=== PATIENT | male | born 1990 | race Caucasian/White ===

== ENCOUNTER 2020-09-22 11:03 | Outpatient (REF) | payer OTHER, SELFPAY ==
[2020-09-22 13:22] LABS: MANUAL DIFF FLAG NO
[2020-09-22 13:24] LABS: Basophils Percent Auto 0.2 % (0-2); Eosinophils Absolute Auto 0.3 X10*3/uL (0.0-0.4); Hematocrit 48.3 % (42-52); Hemoglobin 15.7 g/dl (14.0-18.0); Imm Gran Abs Auto 0.02 X10*3/uL (0.00-0.03); Imm Gran Pct Auto 0.2 % (0.0-0.4); Lymphocytes Absolute Auto 3.4 X10*3/uL (1.2-4.9); Lymphocytes Percent Auto 41.3 % (20-40); Mean Corpuscular HGB Conc 32.5 g/dl (31.0-36.0); Mean Corpuscular Hemoglobin 30.4 pg (27.0-33.0); Mean Corpuscular Volume 93.6 fL (80-98); Mean Platelet Volume 10.6 fL (9.4-12.4); Monocytes Absolute Auto 0.8 X10*3/uL (0.1-1.2); Monocytes Percent Auto 9.5 % (2-11); Neutrophils Absolute Auto 3.8 X10*3/uL (2.0-8.3); Neutrophils Percent Auto 45.8 % (45-73); Platelet Count 337 X10*3/uL (160-400); Red Blood Count 5.16 X10*6/uL (4.60-5.80); Red Cell Distribution Width 13.1 % (11.0-16.0); White Blood Count 8.2 X10*3/uL (4.8-10.8)
[2020-09-22 13:48] LABS: Anion Gap 12 (12-20); Blood Urea Nitrogen 12 mg/dL (9-16); Calcium 9.8 mg/dL (8.4-10.2); Carbon Dioxide 29 mmol/L (22-29); Chloride 104 mmol/L (96-108); Cholesterol 164 mg/dL; Estimated Glomerular Filt Rate > 60; Glucose Fasting 88 mg/dL (60-99); HDL Cholesterol 45 mg/dL; LDL Cholesterol Calculated 101 mg/dl; Potassium 4.6 mmol/L (3.3-5.1); Sodium 140 mmol/L (135-145); Triglycerides 92 mg/dL
[2020-09-22 14:09] LABS: TSH reflex Free T4 0.86 uIU/mL (0.32-4.0)
== END 2020-09-22 11:04 | disposition home or self-care (01) ==
LOC: HO.HMGCLDS 11:03
PROVIDERS: PCP Internal Medicine; Visit Provider Internal Medicine
DX: Z00.00 Encounter for general adult medical examination without abnormal findings (principal); I10 Essential (primary) hypertension; H50.9 Unspecified strabismus; H53.8 Other visual disturbances; S46.911A Strain of unspecified muscle, fascia and tendon at shoulder and upper arm level, right arm, initial encounter
CPT/HCPCS: 36415; 80048; 80061; 84443; 85025

== ENCOUNTER 2021-02-21 09:52 | Outpatient (REF) | payer OTHER, SELFPAY ==
--- NOTE | ~2021-02-21 | US_ITS ---
EXAMINATION: US SCROTUM CLINICAL INFORMATION: Scrotal pain. COMPARISON: None TECHNIQUE: A sonogram of the scrotum was performed assessing florez-scale appearance and color Doppler flow. Spectral Doppler analysis of the arterial and venous flow were performed in the testes bilaterally. FINDINGS: RIGHT: Right testicle measures 4.7 x 2.2 x 3.4 cm, volume 18 mL. No focal testicular parenchymal lesions are visualized. Spectral Doppler analysis of the arterial and venous flow is normal in the right testis. Right epididymal head is normal in size. No right hydrocele or varicocele is seen. Right epididymal Doppler flow is normal. There is a very small right hydrocele. There is a small right varicocele. LEFT: Left testicle measures 4.6 x 2.1 x 3.1 cm, volume 16 mL. There is question of a small millimeter in size left testicular calcification. No other focal testicular parenchymal lesions are visualized. Spectral Doppler analysis of the arterial and venous flow is normal in the left testis. Left epididymal head is normal in size. No left hydrocele or varicocele is seen. Left epididymal Doppler flow is normal. There is no hydrocele. There is a left varicocele. No scrotal hernia is seen. US/US scrotum IMPRESSION: Bilateral varicoceles, left greater than right. Small right hydrocele. No scrotal hernia seen.
== END 2021-02-21 09:53 | disposition home or self-care (01) ==
LOC: HO.HMGCX 09:52
PROVIDERS: PCP Internal Medicine; Visit Provider Nurse Practitioner Family
DX: N50.89 Other specified disorders of the male genital organs (principal)
CPT/HCPCS: 76870

== ENCOUNTER 2022-05-28 08:27 | Day surgery (SDC) | payer OTHER, SELFPAY ==
[2022-05-22 10:57] VITALS: BMI 22.1
[2022-05-28] VITALS (8 sets, daily range): BP systolic 100–115; BP diastolic 65–70; PULSE 60–78; RESP 16–18; TEMP 36.5–36.6; O2SAT 98–100; BMI 23.0
[2022-05-28] MEDS: Lactated Ringers 1,000 ML 50 ML IVCONT (09:07)
--- NOTE | 2022-05-28 10:16 | P.CONAN_ITS ---
[facility] Active Problems Active Problems: All Active Problems (Updated 05/14/22 @ 12:43 by Naomi Barraza MD) Esotropia of both eyes (Acute) Blurred vision, bilateral (Acute) Strabismus (Acute) Past Medical History Medical History Blurred vision, bilateral Esotropia of both eyes Strabismus Family History Family History Mother Hx of hypoglycemia Surgical History Surgical History Hx of eye surgery History of Problems with Anesthesia: No Social History Social History Housing: Apartment Alcohol intake: current Patient Tobacco Use Status: Never used Tobacco e-Cigarette/Vaping Use: Never Used Use of substances other than those prescribed or required for medical reasons: Yes Substance Use Type: Marijuana Substance Use Frequency: Daily Are you DNR?: No Advance Directives: No Advance Directives Information Provided: Yes service: No Current occupational status: employed Cognitive needs: No Hearing needs: No Vision needs: No Meds Allergies Allergy/AdvReac Type Severity Reaction Status Date / Time Penicillins Allergy Itching Verified 05/14/22 12:39 Active Medications: Current Medications Lactated Ringer's (Lr) 1,000 mls @ 50 mls/hr IVCONT .Q20H FRANCISCO Last Admin: 05/28/22 09:07 Dose: 50 mls/hr Home Medications Medication Instructions Recorded Confirmed Last Taken Type No Known Home Meds 09/21/20 05/22/22 Unknown History Exam Exam Date and Time: May 28, 2022 1016 Height,Weight and Vital Signs: Height 6 ft Weight 77.111 kg Last Vital Signs Temp 97.9 F 05/28/22 08:45 Pulse 71 05/28/22 08:45 Resp 16 05/28/22 08:45 BP 111/66 05/28/22 08:45 Pulse Ox 100 05/28/22 08:45 O2 Del Method 05/28/22 08:45 Airway Mallampati Class: III (Long neck) TM Dist: >3cm Neck ROM: Full Loose/Missing/Broken Teeth: No Heart: RRR Lungs: CTA Assessment and Plan Assessment Anesthesia Assessment: Anesthesia Plan Discussed and Chart Reviewed Final Anesthetic Review History of Problems with Anesthesia: No NPO: Yes ASA Class: II Final Preanesthetic Review: Meds/Allgs Chart Reviewed, Consent Obtained/Reviewed and Anes Risks/Benef Reviewed Patient Risk: Low Procedure Risk: Low Anesthetic Plan Anesthetic Plan: GA Disposition: Standard PACU
[2022-05-28] MEDS: Tetracaine HCl/PF 0.5% Oph Sol 4 ML DROPS 1 DROP EYE-BOTH (12:26)
--- NOTE | 2022-05-28 14:32 | HO.OPHTHAL ---
Ophthalmology Operative Note Date of Service: 05/28/22 Narrative: Diagnosis esotropia. Procedure bilateral lateral rectus resections of [address] Castro. Anesthesia general. Complications none. The patient was brought to the operating room placed under general anesthesia. The patient's eyes were prepped draped in the usual sterile ophthalmic fashion. A lid speculum was placed in the right and left eyes and previous surgery was noted on both medial rectus muscles. The left lid speculum was removed and incision was made down to bare sclera in the inferotemporal fornix of the right eye. The lateral rectus muscle was hooked and dissected free of the surrounding fascial tissue. It was then grasped near its insertion with a muscle clamp and a 9 mm resection was marked off with cautery. The resection point was secured with a double-armed Vicryl suture and the distal muscle resected. The resection point was then drawn forward to the original insertion using the Vicryl suture. Conjunctiva was closed with interrupted Vicryl sutures. an identical procedure was then performed on the left eye. The patient was then awoken from general anesthesia and discharged to postoperative recovery in good condition.
== END 2022-05-28 13:30 | disposition home or self-care (01) ==
PROVIDERS: PCP Internal Medicine; Visit Provider Ophthalmology
PROC: (CPT 67311; principal; 2022-05-28 09:50)
DX: H50.00 Unspecified esotropia (principal); H50.9 Unspecified strabismus; Z88.0 Allergy status to penicillin
CPT/HCPCS: 67311; C1713; J0131; J1100; J1885; J2250; J2405; J3010

== ENCOUNTER 2023-05-04 11:49 | Outpatient (AMB) | payer SELFPAY ==
--- NOTE | 2023-05-04 12:57 | MHC.OFFWIV ---
Intake Vital Signs 05/04/23 13:10 Height 6 ft Weight 172 lb BMI 23.3 BP 126/60 Blood Pressure Location Lt brachial Position Sitting Pulse 67 Pulse Source Pulse Oximeter Temp 97.8 F Temp Source Temporal Artery Scan Pulse Oximetry (%) 97 Oxygen Delivery Method Room Air Intake Visit Reasons: EP, WC, low abdominal pain Intake Note: pt is here today for WC and low abdominal pain started 3 weeks ago Patient Tobacco Use Status: Never used Tobacco Allergies Penicillins Allergy (Verified 05/04/23 13:12) Itching Do you need a note to return to daycare/school/sports/work: Yes HPI HPI Comments History of Present Illness Details Patient presents to the walkin today for right hip pain, chronic Patient sustained injury to the area approx 1 year ago. He had a steroid injection to the right hip that resolved the pain for a couple months. Pain has since returned He was recently evaluated at [facility] ER, CT neg for acute pathology. They refilled naproxen but patient reports it makes him feel dizzy so he is not able to take it and work. When the pain is severe it will cause patient to vomit, this happened at work today and he was sent home. He is requesting work note. Patient denies diarrhea or constipation. Denies blood in urine or stool. Area is nontender to palpation. [facility] Medical History (Updated 05/04/23 @ 14:05 by María Wang APRN, MACHINE STUFFER) Esotropia of both eyes Blurred vision, bilateral Strabismus Surgical History Hx of eye surgery Family History Mother Hx of hypoglycemia Social History Housing: Apartment Alcohol intake: current Patient Tobacco Use Status: Never used Tobacco e-Cigarette/Vaping Use: Never Used Substance Use Type: Marijuana service: No Current occupational status: employed Cognitive needs: No Hearing needs: No Vision needs: No Review of Systems Const All systems reviewed & are unremarkable except as noted in HPI and below Physical Exam Vital Signs: Last Vital Signs Temp 97.8 F 05/04/23 13:10 Pulse 67 05/04/23 13:10 BP 126/60 01/08/24 13:10 Pulse Ox 97 05/04/23 13:10 Oxygen Delivery Method Room Air 05/04/23 13:10 BMI result Body Mass Index 23.3 General: awake, alert, oriented. Answers questions appropriately. Fully engaged in examination. Skin: warm, dry, intact HEENT: Normocephalic. Hearing intact. Cardiac: External chest normal in appearance. Respiratory: No cough, audible wheezing or stridor. Abdomen: without gross distension. no bulging, swelling, bruising, tenderness to right groin. no rebound tenderness or guarding. MS: No obvious swelling or deformities. I/E rotation left hip does not illicit pain. nontender over PSIS Neurological: Oriented to person, place, time and situation. Thought process intact. No gait abnormalities appreciated. Psychiatric: Appropriate mood and affect. Good judgment and insight. Results Reviewed Results Reviewed: 01/2023 CT abd/pelvis from [facility] reviewed. No acute intrabdominal pathology. Assessment & Plan Assessment & Plan (1) Chronic right hip pain: Code(s): M25.551 - Pain in right hip; G89.29 - Other chronic pain Plan Patient presented to the walkin today for chronic right hip pain Diclofenac 25mg po BID. d/c naproxyn. Do not take with other NSAIDs Zofran ODT q8h as needed for nausea/vomiting Patient will call to schedule appointment with [facility] for potential repeat steroid injection as this provided relief in the past. Work note provided All questions and concerns were answered, patient agrees with plan Follow up with pcp Thursday as planned, return here for any new or worsening symptoms. Medications: New diclofenac potassium 25 mg PO BID 30 tabs 0RF ondansetron 4 mg PO Q8H PRN 20 tabs 0RF nausea and vomiting Coding Level of Care Code Est Pt Level 4 (74179) Diagnoses Chronic right hip pain M25.551; G89.29
[2023-05-04 13:10] VITALS: BP 126/60; PULSE 67; TEMP 36.6; O2SAT 97; BMI 23.3
== END 2023-05-04 14:24 | disposition home or self-care (01) ==
PROVIDERS: PCP Internal Medicine; Visit Provider Registered Nurse Emergency
DX: M25.551 Pain in right hip (principal); G89.29 Other chronic pain
CPT/HCPCS: 99214

== ENCOUNTER 2023-05-08 13:21 | Outpatient (AMB) | payer SELFPAY ==
[2023-05-08 14:04] VITALS: BP 100/62; PULSE 67; O2SAT 95; BMI 23.6
--- NOTE | 2023-05-08 14:04 | MHC.PC.OV ---
Vital Signs 05/08/23 14:04 Height 6 ft Weight 174 lb BMI 23.6 BP 100/62 Blood Pressure Location Lt brachial Position Sitting Pulse 67 Pulse Source Pulse Oximeter Pulse Oximetry (%) 95 Oxygen Delivery Method Room Air Intake Visit Reasons: EP, WC, low abd pain Intake Note: Pt is here to follow up for low abd pain and pt is still having pain and nausea, has changed his diet with no relief and has gone back to work Allergies Penicillins Allergy (Verified 05/18/23 10:14) Itching Medication List - Last Reconciled 05/18/23 by Naomi Barraza MD diclofenac potassium 25 mg PO BID omeprazole 40 mg PO DAILY ondansetron 4 mg PO Q8H PRN Tobacco use date assessed: 05/08/23 HPI EP, WC, low abd pain HPI Details 32-year-old male here today for follow-up after recent visit at the walk-in clinic complaining right hip pain, which is chronic. Has received steroid injections in his right hip that afforded temporary relief for couple of months. Pain however has returned, states that he was recently seen and evaluated at [facility] with a CT scan of affected joint done showing no acute pathology. He was given naproxen but discontinue taking as it was making him feel dizzy . Patient states that he is in so much pain at times that it makes him vomit and does was sent off from work that day. Denies any alteration in bowel habits, no blood in urine or stool. He was then discharged on diclofenac advised to stop naproxen and follow-up with PCP if pain persists. He now is here today complaining of epigastric pain accompanied by nausea. [facility] Medical History Esotropia of both eyes Blurred vision, bilateral Strabismus Surgical History Hx of eye surgery Family History Mother Hx of hypoglycemia Social History Housing: Apartment Alcohol intake: current Patient Tobacco Use Status: Never used Tobacco e-Cigarette/Vaping Use: Never Used Substance Use Type: Marijuana service: No Current occupational status: employed Cognitive needs: No Hearing needs: No Vision needs: No Questionnaire Thrive Questionnaire Date Thrive assessed: 01/15/22 IRIS-7 AMB Questionnaire IRIS-7 Date IRIS - 7 assessed: 01/15/22 Source: Developed by Drs. Catracho Ramey, Sophie Durán, Jeremi Key and colleagues, with an educational ngozi from [employer] [place]. Review of Systems Const All systems reviewed & are unremarkable except as noted in HPI and below Physical exam (Primary Care) Vital Signs: Last Vital Signs Pulse 67 05/08/23 14:04 BP 100/62 05/08/23 14:04 Pulse Ox 95 05/08/23 14:04 Oxygen Delivery Method Room Air 05/08/23 14:04 BMI result Body Mass Index 23.6 Tobacco/Smoking Status: Tobacco use Status Tobacco use date assessed 05/08/23 05/08/23 14:13 Patient Tobacco Use Status Never used Tobacco 05/08/23 14:13 e-Cigarette/Vaping Use Never Used 05/08/23 14:13 Thrive Assessment: Date of Thrive Assessment Date Thrive assessed 01/15/22 05/08/23 14:13 Const General: comfortable, no acute distress and alert Orientation/consciousness: patient oriented x3 HENMT Mouth: Normal oral and palatal mucosa present, oropharynx normal and moist mucous membranes Neck Neck: Yes full ROM, Yes no lymphadenopathy and Yes supple Resp Auscultation: clear to auscultation bilaterally Cardio Other: S1-S2 present regular rate and rhythm no murmurs GI Inspection: Yes normal to inspection Palpation (GI): Soft to palpation, nontender, no guarding and no masses Neuro General: patient oriented x3, gait normal, moves all extremities, no focal motor deficits and CN's II-XI intact bilaterally Assessment and Plan Assessment & Plan (1) Acute epigastric pain: Code(s): R10.13 - Epigastric pain Plan: Advised to discontinue diclofenac, take Tylenol 500 mg per tablet 1-2 tablets every 12 hours as needed for pain. He was placed on omeprazole 40 mg per capsule to take once a day an hour before eating, as needed for abdominal pain, likely gastritis. Avoid taking nonsteroidal anti-inflammatory agents such as naproxen, Motrin, diclofenac, and avoid eating build acidic foods like anything that is tomato based. Return to clinic if no improvement of symptoms Medications: New omeprazole Take 1 hour before a meal 40 mg PO DAILY 30 caps 1RF Coding Level of Care Code Est Pt Level 3 (68221) Diagnoses Acute epigastric pain R10.13
== END 2023-05-08 15:58 | disposition home or self-care (01) ==
PROVIDERS: PCP Internal Medicine; Visit Provider Internal Medicine
DX: R10.13 Epigastric pain (principal)
CPT/HCPCS: 99213

== ENCOUNTER 2024-08-02 10:08 | Outpatient (REF) | payer OTHER, SELFPAY ==
--- OUTSIDE RECORDS SUMMARY | 2024-08-02 14:27 | XMS_ITS | Clinical Summary ---
Author Organization [facility] it Address [address] [place] [address] Care Team Providers Care Driller Multiple Spindle Name Role Phone Naomi Barraza MD Primary Care Provider [phone] Social History Tobacco Use Types Packs/Day Years [...] age to complete this topic Care Teams Driller Multiple Spindle Relationship Specialty Start Date End Date Naomi Barraza MD [address] [place] [address] PCP - General Internal Medicine 07/29/21
[2024-08-02 15:06] LABS: CT PCR NOT DETECTED (Not Detect.); NG PCR NOT DETECTED (Not Detect.)
== END 2024-08-02 10:09 | disposition home or self-care (01) ==
LOC: HO.LAB 10:08
PROVIDERS: PCP Internal Medicine; Visit Provider Physician Assistant
DX: N50.811 Right testicular pain (principal); N50.812 Left testicular pain
CPT/HCPCS: 76870; 87491; 87591; 99212

== ENCOUNTER 2024-08-02 10:08 | Outpatient (AMB) | payer OTHER, SELFPAY ==
[2024-08-02 10:09] VITALS: BP 130/80; PULSE 78; TEMP 36.7; O2SAT 93
--- NOTE | 2024-08-02 10:09 | AM.OFFWIN_ITS ---
Intake Vital Signs 08/02/24 10:09 Weight 177 lb BP 130/80 Blood Pressure Location Rt brachial Position Sitting Pulse 78 Pulse Source Pulse Oximeter Temp 98.1 F Temp Source Oral Pulse Oximetry (%) 93 Oxygen Delivery Method Room Air Intake Visit Reasons: EP Testicle pain Intake Note: Patient here for testicle pain that has been present for about 3 weeks now but the past 3 days they have been red. Patient Tobacco Use Status: Never used Tobacco Allergies Penicillins Allergy (Verified 08/02/24 10:15) Itching Do you need a note to return to daycare/school/sports/work: Yes HPI HPI Comments History of Present Illness Details This is a 34-year-old male with no stated past medical surgical history presenting for evaluation of testicular pain that he has had for the past 3 weeks. Patient states he has had a squeezing sensation in both of his testicles for the past 3 weeks that has worsened since Thursday. Patient denies having any fevers, chills, dysuria, urinary frequency or penile discharge but describes having pain after ejaculation. He has not taken any medication for treatment of his discomfort. [facility] Medical History Esotropia of both eyes Blurred vision, bilateral Strabismus Surgical History Hx of eye surgery Family History Mother Hx of hypoglycemia Social History Housing: Apartment Alcohol intake: current Patient Tobacco Use Status: Never used Tobacco e-Cigarette/Vaping Use: Never Used Substance Use Type: Marijuana service: No Current occupational status: employed Cognitive needs: No Hearing needs: No Vision needs: No Review of Systems Const All systems reviewed & are unremarkable except as noted in HPI and below Denies body aches, Denies chills and Denies fever(s) Eyes Reports no additional complaints ENT Reports no additional complaints Card Reports no additional complaints Resp Reports no additional complaints GI Reports no additional complaints Reports no additional complaints, Denies genital lesions, Denies genital pain, Denies dysuria, Reports painful ejaculations, Denies penile discharge, Reports scrotal swelling, Denies testicular mass, Reports testicular pain and Denies uri nary frequency Musc Reports no additional complaints Skin/Breast Reports system reviewed and no additional complaints, except as documented Neuro Reports no additional complaints Psych Reports no additional complaints Endo Reports no additional complaints Enoc/Lymph Reports no additional complaints Aller/Immun Reports no additional complaints Physical Exam Vital Signs: Last Vital Signs Temp 98.1 F 08/02/24 10:09 Pulse 78 08/02/24 10:09 BP 130/80 08/02/24 10:09 Pulse Ox 93 08/02/24 10:09 Oxygen Delivery Method Room Air 08/02/24 10:09 Patient is afebrile. Const General: cooperative, healthy appearing, comfortable, no acute distress, well developed, alert, awake and Physically active Nutritional Appearance: average body habitus Orientation/consciousness: patient oriented x3 Limitations: no limitations GI Inspection: Yes normal to inspection Palpation (GI): Soft to palpation, nontender and no guarding General: Yes bladder normal to inspection Male General Exam: No hernia, No inguinal lymphadenopathy, No Genital lesions present, No perineal induration and No tenderness Penis: uncircumcised, not edematous, not erythematous, no nodules, no papules, no pustules and No Genital lesions present Meatus: meatus normal Scrotum: not erythematous, testes descended bilaterally, no inguinal hernias, no masses and no scrotal swelling Testes: testicular lie normal, not enlarged and testicular tenderness bilateral (right > left) Skin Other: no cutaneous lesions noted on the scrotum or shaft of the penis General skin exam: no rashes or lesions noted Neuro General: patient oriented x3 Psych Appearance: grossly normal Mental Status: mental status grossly normal Insight: Good insight present (Psych) Judgement: Good judgement present (Psych) Assessment & Plan Assessment & Plan (1) Testicular pain: Comment: no acute pain on examination, however given the chronicity of his pain, testicular ultrasound will be obtained and the patient will be tested for both gonorrhea and chlamydia. Code(s): N50.819 - Testicular pain, unspecified Qualifiers: Laterality: bilateral Qualified Code(s): N50.811 - Right testicular pain; N50.812 - Left testicular pain Plan: Testicular ultrasound scheduled at 11:00 a.m. today. Tylenol or ibuprofen as needed for discomfort. Patient consents for his partner, Ervin to receive results of ultrasound testing . Orders: Orders US scrotum Today N50.819 - Testicular pain, unspecified CT NG by PCR Today N50.811 - Right testicular pain, N50.812 - Left testicular pain Coding Level of Care Code Est Pt Level 4 (96892) Diagnoses Pain in both testicles N50.811; N50.812 Laterality: bilateral Time Spent (min) 25
--- OUTSIDE RECORDS SUMMARY | 2024-08-02 11:50 | XMS_ITS | Clinical Summary ---
Author Organization [facility] it Address [address] [place] [address] Care Team Providers Care Measurement Technician Name Role Phone Naomi Barraza MD Primary Care Provider Social History Tobacco Use Types Packs/Day Years Used Date Smoking Tobacco: Some Days Alcohol Use Standard Drinks/Week Comments Yes 0 (1 standard drink = 0.6 oz pur e alcohol) Sex and Gender Information Value Date Recorded Sex Assigned at Not on file Legal Sex Male 4:50 AM EST Gender Identity Not on file Sexual Orientation Not on file Obstetrics History Last Filed Vital Signs Vital Sign Reading Time Taken Comments Blood Pressure 105/65 08/14/2021 9:46 AM EDT Pulse 71 08/14/2021 9:46 AM EDT Temperature - - Respiratory Rate - - Oxygen Saturation - - Inhaled Oxygen Concentration - - Weight 80.1 kg (176 lb 9.6 oz) 08/14/2021 9:46 A M EDT Height 182.9 cm (6') 08/14/2021 9:46 AM EDT Body Mass Index 23.95 08/14/2021 9:46 AM EDT Plan of Treatment Health Maintenance Due Date Last Done Comments Hepatitis B Vaccines (1 of 3 - 19+ 3-dose series) 07/08/2010 Pneumococcal Vaccine: Pediat rics (0 to 5 Years) and At-Risk Patients (6 to 64 Years) (1 of 2 - PCV) 07/08/2010 Depression Screening 03/30/2022 HIV Screening 03/30/2022 Hepatitis C Screening 03/30/2022 Social Influencers of Health Screening 03/30/2022 COVID-19 Vaccine ( - 2023-2 5 season) 2023 Influenza Vaccine (#1) 2023 DTaP,Tdap,and Td Vaccines (2 - Td or Tdap) 07/08/2032 07/08/2022 HIB Vaccines Aged Out No longer eligi ble based on patient's age to complete this topic HPV Vaccines Aged Out No longer eligi ble based on patient's age to complete this topic Hepatitis A Vaccines Aged Out No long er eligible based on patient's age to complete this topic IPV Vaccines Aged Out No longer eligi ble based on patient's age to complete this topic MMR Vaccines Aged Out No longer eligi ble based on patient's age to complete this topic Meningococcal ACWY Vaccine Aged Out N o longer eligible based on patient's age to complete this topic Meningococcal B Vaccine Aged Out No l onger eligible based on patient's age to complete this topic RSV Immunization Patients Un talita 20 months Aged Out No longer eligible b ased on patient's age to complete this topic Varicella Vaccines Aged Out No longer eligible based on patient's age to complete this topic Care Teams Measurement Technician Relationship Specialty Start Date End Date Naomi Barraza MD [address] [place] [address] PCP - General Internal Medicine 07/29/21
== END 2024-08-02 11:25 | disposition home or self-care (01) ==
PROVIDERS: PCP Internal Medicine; Visit Provider Physician Assistant
DX: N50.811 Right testicular pain (principal); N50.812 Left testicular pain

== ENCOUNTER 2024-08-02 10:43 | Outpatient (REF) | payer OTHER, SELFPAY ==
--- NOTE | ~2024-08-02 | US_ITS ---
EXAMINATION: US SCROTUM HISTORY: N50.819 - Testicular pain, unspecified. COMPARISON: Comparison is made with the prior examination dated 02/21/2021. FINDINGS: Real-time grayscale ultrasound imaging of the scrotum was performed. RIGHT TESTICLE: The right testis measures 4.6 x 2.4 x 3.4 cm and demonstrates normal homogeneous echotexture. No masses are seen. The right testis demonstrates normal color Doppler flow. RIGHT EPIDIDYMIS: Normal in size, shape, and vascularity. LEFT TESTICLE: The left testis measures 4.8 x 2.3 x 3.0 cm and demonstrates normal homogeneous echotexture. No masses are seen. The left testis demonstrates normal color Doppler flow. LEFT EPIDIDYMIS: Normal in size, shape, and vascularity. VARICOCELE: None. HYDROCELE: No significant hydrocele is seen. OTHER COMMENTS: None. US/US scrotum IMPRESSION: Unremarkable scrotal ultrasound. Electronically signed by: Catracho Quintana MD 08/02/2024 11:10 AM EDT
--- OUTSIDE RECORDS SUMMARY | 2024-08-02 12:58 | XMS_ITS | Clinical Summary ---
Author Organization [facility] it Address [address] [place] [address] Care Team Providers Care Cover Stitch Machine Operator Name Role Phone Naomi Barraza MD Primary Care Provider [phone] Social History Tobacco Use Types Packs/Day Years [...] age to complete this topic Care Teams Cover Stitch Machine Operator Relationship Specialty Start Date End Date Naomi Barraza MD [address] [place] [address] PCP - General Internal Medicine 07/29/21
== END 2024-08-02 10:44 | disposition home or self-care (01) ==
LOC: HO.HMGCX 10:43
PROVIDERS: PCP Internal Medicine; Visit Provider Physician Assistant
DX: Z13.89 Encounter for screening for other disorder (principal)
CPT/HCPCS: 76870; 99212

== ENCOUNTER → 2024-08-02 10:47 | Outpatient (BNV) | payer OTHER, SELFPAY | PROVIDERS: PCP Internal Medicine; Visit Provider Radiology Diagnostic Radiology | DX: N50.811 Right testicular pain (principal); N50.812 Left testicular pain | CPT/HCPCS: 76870 ==